=== PATIENT | female | born 1985 | race Caucasian/White ===

== ENCOUNTER 2021-05-12 00:30 | Inpatient (IN) | payer OTHER ==
[2021-05-12] MEDS ORDERED: AMPICILLIN SODIUM 2 GM VIAL ONE (01:43)
[2021-05-12 01:51] LABS: BASO % 0.3 % (0-2.0); EOS % 0.5 % (0-4.5); HEMATOCRIT 37.6 % (32.4-45.2); HEMOGLOBIN 13.4 GM/dL (10.7-15.3); LYMPH % 26.3 % (8-40); MCHC 35.5 g/dl (32.0-36.0); MEAN CELL VOLUME 87.3 fl (80-96); MEAN PLT VOLUME 9.9 fl (7.5-11.1); MONO % 9.2 % (3.8-10.2); NEUT % 63.7 % (42.8-82.8); PLATELET COUNT 188 10^3/uL (134-434); RBC 4.31 M/mm3 (3.60-5.2); WHITE BLOOD COUNT 8.1 K/mm3 (4.0-10.0)
[2021-05-12 01:57] LABS: INR 0.92 (0.83-1.09); PROTHROMBIN TIME (PATIENT) 10.6 SEC (9.7-13.0)
[2021-05-12 02:00] LABS: ACTIVATED PTT 26.6 SECONDS (25.2-36.5)
[2021-05-12] MEDS ORDERED: ELECTROLYTE-148 SOLN 1,000 ML IV SCH (02:00)
[2021-05-12] MEDS ORDERED: AMPICILLIN - 2 GM in SODIUM CHLORIDE 100 ML IVPB ONE (02:01)
[2021-05-12] MEDS ORDERED: PROMETHAZINE HCL 25 MG/1 ML VIAL IVPB ONE (02:01)
[2021-05-12] MEDS ORDERED: BUTORPHANOL TARTRATE 1 MG/ML VIAL IVPB ONE (02:02)
[2021-05-12 02:09] LABS: CALCIUM 8.6 mg/dL (8.5-10.1)
[2021-05-12 02:13] LABS: CREATININE 0.5 mg/dL (0.55-1.3)
[2021-05-12] MEDS ORDERED: OXYTOCIN 30 UNITS in 0.9% NS 30 UNIT/500 ML INFUS.BAG IVPB SCH (02:15)
[2021-05-12 02:29] VITALS: BMI 34.0
[2021-05-12 03:04] LABS: HIV INTERPRETATION NEGATIVE (NEGATIVE)
[2021-05-12] MEDS ORDERED: PROMETHAZINE HCL 25 MG/1 ML VIAL ONE (03:12)
[2021-05-12] MEDS ORDERED: BUTORPHANOL TARTRATE 2 MG/ML VIAL ONE (03:12)
[2021-05-12] MEDS ORDERED: OXYTOCIN 30 UNITS in 0.9% NS 30 UNIT/500 ML INFUS.BAG IVPB ONE (03:25)
[2021-05-12] MEDS ORDERED: FENTANYL/BUPIVACAINE/NS/PF - PCEA - 50 ML DISP.SYRIN EP ONE ×2 (05:32→10:26)
[2021-05-12] MEDS: AMPICILLIN - 1 GM in SODIUM CHLORIDE 100 ML IVPB SCH ×2 (05:55→10:00)
[2021-05-12] MEDS ORDERED: AMPICILLIN SODIUM 1 GM VIAL ONE ×2 (06:01→09:24)
[2021-05-12] MEDS ORDERED: NALOXONE HCL 0.4 MG/ML VIAL IVPUSH PRN (06:09)
[2021-05-12] MEDS ORDERED: FENTANYL/BUPIVACAINE/NS/PF - PCEA - 50 ML DISP.SYRIN EP SCH (06:15)
[2021-05-12] MEDS ORDERED: LIDOCAINE HCL 1% PRESERVATIVE FREE - 30ML VIAL ONE (10:32)
[2021-05-12] MEDS ORDERED: OXYTOCIN 20 UNITS in 0.9% NS 20 UNIT/1,000 ML INFUS.BAG IV ONE (10:32)
[2021-05-12] MEDS ORDERED: WITCH HAZEL 50% (TUCKS) 40 PAD/JAR PAD TP PRN (11:18)
[2021-05-12] MEDS ORDERED: BENZOCAINE 20% 57 GM BOTTLE TP PRN (11:18)
[2021-05-12] MEDS ORDERED: BENZOCAINE 28 GM HEMORRHOIDAL OINTMENT TP PRN (11:18)
[2021-05-12] MEDS ORDERED: METHYLERGONOVINE MALEATE 0.2 MG/1 ML AMP IM PRN (11:18)
[2021-05-12] MEDS ORDERED: oxyCODONE HCL 5 MG TABLET PO PRN (11:18)
[2021-05-12] MEDS ORDERED: BISACODYL 10 MG SUPP.RECT RC PRN (11:18)
[2021-05-12] MEDS ORDERED: ACETAMINOPHEN 325 MG TABLET (FP) PO PRN (11:18)
[2021-05-12] MEDS ORDERED: OXYTOCIN 20 UNITS in 0.9% NS 20 UNIT/1,000 ML INFUS.BAG IV SCH (11:30)
[2021-05-12 11:53] LABS: CORD BASE EXCESS -4.5 mmol/L (0-2); CORD HCO3 24.8 mmHg (20-29); CORD PCO2 62.3 mmHg (30-78); CORD pH 7.217 (7.14-7.44)
[2021-05-12 11:54] LABS: CORD BASE EXCESS -4.8 mmol/L (0-2); CORD HCO3 21.8 mmHg (20-29); CORD PCO2 45.6 mmHg (30-78); CORD pH 7.297 (7.14-7.44)
[2021-05-12] MEDS: SERTRALINE HCL 50 MG TABLET (FP) PO SCH (15:14)
[2021-05-12] MEDS: IBUPROFEN 600 MG TABLET (FP) PO PRN (15:14)
[2021-05-13 07:54] LABS: BASO % 0.4 % (0-2.0); EOS % 0.4 % (0-4.5); HEMATOCRIT 34.6 % (32.4-45.2); LYMPH % 23.9 % (8-40); MCH 30.9 pg (25.7-33.7); MCHC 34.6 g/dl (32.0-36.0); MEAN CELL VOLUME 89.4 fl (80-96); MONO % 6.6 % (3.8-10.2); NEUT % 68.7 % (42.8-82.8); PLATELET COUNT 172 10^3/uL (134-434); RBC 3.87 M/mm3 (3.60-5.2); RDW 13.1 % (11.6-15.6); WHITE BLOOD COUNT 10.1 K/mm3 (4.0-10.0)
[2021-05-13] MEDS ORDERED: PATIENT'S OWN MEDICATION (NON-FORMULARY) (Prenatal Vit 93/Iron Fum/Folic [Prenatal Formula PO SCH (10:00)
[2021-05-13] MEDS: SERTRALINE HCL 50 MG TABLET (FP) PO SCH (11:08)
[2021-05-13] MEDS: IBUPROFEN 600 MG TABLET (FP) PO PRN (11:08)
[2021-05-13] MEDS: PRENATAL VITAMINS W/ FOLIC ACID TABLET (FP) PO SCH (11:09)
[2021-05-13] MEDS ORDERED: SENNOSIDES/DOCUSATE COMBO (SENNA PLUS) TABLET (UD) PO PRN (22:00)
[2021-05-14] MEDS: PRENATAL VITAMINS W/ FOLIC ACID TABLET (FP) PO SCH (09:25)
[2021-05-14] MEDS: SERTRALINE HCL 50 MG TABLET (FP) PO SCH (09:25)
[2021-05-14 11:14] VITALS: BP 116/79; PULSE 101; TEMP 97.9
== END 2021-05-14 13:09 | disposition home or self-care (01) | DRG 807 ==
LOC: JDEL 00:30 → JLDR 01:05 → J3W 14:00
PROVIDERS: ADMIT Obstetrics & Gynecology; ATTEND Obstetrics & Gynecology
PROC: 10E0XZZ Delivery of Products of Conception, External Approach (ICD-10-PCS; principal; 2021-05-12)
DX: O75.89 Other specified complications of labor and delivery (principal); O99.214 Obesity complicating childbirth; Z37.0 Single live birth; O99.824 Streptococcus B carrier state complicating childbirth; Z3A.38 38 weeks gestation of pregnancy
CPT/HCPCS: 36415; 36600; 59409; 80048; 82803; 85025; 85610; 85730; 86780; 86850; 86900; 86901; 87389; C9803-CS; U0003; U0005